=== PATIENT | male | born 1975 | race Native Hawaiian/Other Pacific Islander ===

== ENCOUNTER 2016-11-04 09:55 | Outpatient (CLI) | payer OTHER | END 2016-11-04 10:55 | disposition home or self-care (01) | LOC: RAD 09:55 | DX: K45.8 Other specified abdominal hernia without obstruction or gangrene (principal); K21.9 Gastro-esophageal reflux disease without esophagitis ==

== ENCOUNTER 2019-02-18 03:54 | Emergency (ER) | payer OTHER ==
[~2019-02-18] VITALS: Ht 190.5 cm; Wt 104.3 kg
[2019-02-18 05:56] LABS: PLATELET COUNT 242 K/uL (142-355)
[2019-02-18 06:04] LABS: POTASSIUM 3.6 mmol/L (3.6-5.2)
[2019-02-18 06:35] VITALS: BP 167/93; TEMP 98.9
== END 2019-02-18 06:35 | disposition home or self-care (01) ==
LOC: ED 03:54
PROVIDERS: Family Medicine
DX: T24.102A Burn of first degree of unspecified site of left lower limb, except ankle and foot, initial encounter (principal); F15.90 Other stimulant use, unspecified, uncomplicated; T31.10 Burns involving 10-19% of body surface with 0% to 9% third degree burns; X03.4XXA Hit by object due to controlled fire, not in building or structure, initial encounter
CPT/HCPCS: 36415; 80053; 80307; 81000; 85027; 99282

== ENCOUNTER 2020-07-21 19:06 | Emergency (ER) | payer OTHER ==
[~2020-07-21] VITALS: Ht 190.5 cm; Wt 95.3 kg
[2020-07-21 21:38] VITALS: BP 122/88; TEMP 98.1
== END 2020-07-21 21:38 | disposition home or self-care (01) ==
LOC: ED 19:06
PROC: 0HQEXZZ Repair Left Lower Arm Skin, External Approach (ICD-10-PCS; principal; 2020-07-21)
PROC: 2W3DX1Z Immobilization of Left Lower Arm using Splint (ICD-10-PCS; 2020-07-21)
DX: S51.812A Laceration without foreign body of left forearm, initial encounter (principal); S52.022A Displaced fracture of olecranon process without intraarticular extension of left ulna, initial encounter for closed fracture; Y08.02XA Assault by strike by baseball bat, initial encounter; Y92.89 Other specified places as the place of occurrence of the external cause
CPT/HCPCS: 90471; 90715; 96374; 99284; J1885; J2001